=== PATIENT | female | born 1990 | race Caucasian/White ===

== ENCOUNTER 2018-10-25 08:37 | Outpatient (CLI) | payer OTHER | END 2018-10-25 08:43 | disposition home or self-care (01) | LOC: RAD 08:37 → RX STUDY 09:15 | DX: R13.19 Other dysphagia (principal); E66.3 Overweight; E04.8 Other specified nontoxic goiter ==

== ENCOUNTER → 2018-10-28 | Emergency (ER) | payer OTHER ==
[~2018-10-28] VITALS: Ht 165.1 cm; Wt 81.6 kg
== END | disposition home or self-care (01) ==
LOC: ER 18:00
DX: R11.11 Vomiting without nausea (principal); F06.4 Anxiety disorder due to known physiological condition